=== PATIENT | female | born 1990 | race Caucasian/White ===

== ENCOUNTER 2017-02-20 13:52 | Emergency (ER) | payer BC ==
--- NOTE | 2017-02-20 14:42 | EDM.PDOC ---
ED HPI GENERAL MEDICAL PROBLEM - General Chief Complaint: Chest Pain Stated Complaint: Chest pain Time Seen by Provider: 02/20/17 14:15 Source of Information: Reports: Patient, RN Notes Reviewed History Limitations: Reports: No Limitations - History of Present Illness INITIAL COMMENTS - FREE TEXT/NARRATIVE: 26 year old female presents to the ER with 3 day history of left sided chest pain. The pain is described as sharp and only lasts a few seconds. The pain does not worsen with inspiration. She denies radiation of the chest pain. She denies unilateral or bilateral calf pain, swelling, or erythema. No history of clotting disorder. She reports intermittent dizziness and near syncope for several months. She says she feels like her heart skips a beat. This only lasts a few seconds. She denies rapid heart rate or persistent palpitations. She has no history of heart problems. She has a history of asthma and feels the smoke in the air is causing her symptoms. She is not on any control and says she may be . She is new to the area and does not have a PCP. Left Chest Pain Score (Numeric/FACES): 7 - Related Data Allergies Allergy/AdvReac Type Severity Reaction Status Date / Time No Known Allergies Allergy Verified 02/20/17 14:01 Home Meds: Home Meds Albuterol [Proventil HFA] 2 puff INH QID PRN #1 inhaler 02/20/17 [Rx] Past Medical History Respiratory History: Reports: Asthma Other Respiratory History: hx of asthma as a child [employer] History: Reports: - Past Surgical History GI Surgical History: Reports: Cholecystectomy Social & Family History - Tobacco Use Smoking Status *Q: Never Smoker - Caffeine Use Caffeine Use: Reports: Coffee - Recreational Drug Use Recreational Drug Use: No ED ROS GENERAL - Review of Systems Review Of Systems: See Below Constitutional: Reports: No Symptoms. Denies: Fever, Chills Respiratory: Reports: No Symptoms. Denies: Shortness of Breath, Wheezing, Cough , Sputum Cardiovascular: Reports: Chest Pain, Lightheadedness, Palpitations. Denies: Dyspnea on Exertion, Edema, Syncope GI/Abdominal: Reports: No Symptoms. Denies: Abdominal Pain, Nausea, Vomiting Neurological: Reports: Dizziness. Denies: Headache, Numbness, Tingling, Difficulty Walking, Weakness ED EXAM, GENERAL - Physical Exam Exam: See Below Exam Limited By: No Limitations General Appearance: Alert, WD/WN, No Apparent Distress Respiratory/Chest: No Respiratory Distress, Lungs Clear, Normal Breath Sounds, No Accessory Muscle Use, Other (mild tenderness over left anterior chest wall ) Cardiovascular: Normal Peripheral Pulses, Regular Rate, Rhythm, No Edema, No Murmur GI/Abdominal: Normal Bowel Sounds, Soft, Non-Tender Extremities: Normal Inspection, Normal Range of Motion, No Pedal Edema. No: Lizbeth's Sign, Leg Pain, Increased Warmth, Redness Neurological: Alert, Oriented, Normal Cognition Skin Exam: Warm, Dry, Intact Course - Vital Signs Last Recorded V/S: Last Vital Signs Temp 97.4 F 02/20/17 14:01 Pulse 70 02/20/17 14:01 Resp 16 02/20/17 14:01 BP 127/80 02/20/17 14:01 Pulse Ox 100 02/20/17 14:01 - Orders/Labs/Meds Orders: Active Orders 24 hr Category Date Time Status EKG 12 Lead [EKG Documentation Completion] [RC] STAT Care 02/20/17 14:14 Active CXR [Chest 1V Frontal] [CR] Stat Exams 02/20/17 14:41 Ordered Labs: Laboratory Tests 02/20/17 02/20/17 02/20/17 Range/Units 14:55 14:55 14:55 WBC 7.37 (3.98-10.04) K/mm3 RBC 4.56 (3.98-5.22) M/mm3 Hgb 13.3 (11.2-15.7) gm/L Hct 40.2 (34.1-44.9) % MCV 88.2 (79.4-94.8) fl MCH 29.2 (25.6-32.2) pg MCHC 33.1 (32.2-35.5) g/dl RDW Std Deviation 43.0 (36.4-46.3) fL Plt Count 257 (182-369) K/mm3 MPV 11.1 (9.4-12.3) fl Neut % (Auto) 55.9 (34.0-71.1) % Lymph % (Auto) 31.9 (19.3-51.7) % [place] % (Auto) 8.3 (4.7-12.5) % Eos % (Auto) 3.4 (0.7-5.8) Baso % (Auto) 0.4 (0.1-1.2) % Neut # (Auto) 4.12 (1.56-6.13) K/mm3 Lymph # (Auto) 2.35 (1.18-3.74) K/mm3 [place] # (Auto) 0.61 H (0.24-0.36) K/mm3 Eos # (Auto) 0.25 (0.04-0.36) K/mm3 Baso # (Auto) 0.03 (0.01-0.08) K/mm3 Sodium 140 (136-145) mEq/L Potassium 4.0 (3.5-5.1) mEq/L Chloride 107 (98-107) mEq/L Carbon Dioxide 27 (21-32) mEq/L Anion Gap 10.0 (5-15) BUN 8 (7-18) mg/dL Creatinine 0.8 (0.55-1.02) mg/dL Est Cr Clr Drug Dosing 90.41 mL/min Estimated GFR (MDRD) > 60 (>60) mL/min BUN/Creatinine Ratio 10.0 L (14-18) Glucose 89 (74-106) mg/dL Calcium 9.3 (8.5-10.1) mg/dL Total Bilirubin 0.3 (0.2-1.0) mg/dL AST 22 (15-37) U/L ALT 32 (14-59) U/L Alkaline Phosphatase 50 (46-116) U/L Troponin I < 0.017 (0.00-0.056) ng/mL Total Protein 7.4 (6.4-8.2) g/dl Albumin 3.7 (3.4-5.0) g/dl Globulin 3.7 gm/dL Albumin/Globulin Ratio 1.0 (1-2) Urine HCG, Qual Negative (NEGATIVE) - Re-Assessments/Exams Free Text/Narrative Re-Assessment/Exam: CBC, CMP and troponin are WNL today. Hcg is negative. Chest x-ray is normal. No pulmonary infiltrates or effusions. Heart size is normal. EKG reveals NSR 77 bpm with no acute changes. EKG read by Dr. Torres. Patient was reassured. We discussed Holter monitor for further evaluation of her occasional palpitations. Will refer her to the clinic for follow-up and to establish care. Educated on return precautions. She will be given Rx for Albuterol inhaler to see if this offers any relief in symptoms as she has a history of asthma. Departure - Departure Time of Disposition: 16:17 Disposition: Home, Self-Care 01 Condition: Good Clinical Impression: History of asthma Chest pain Qualifiers: Chest pain type: intercostal pain Qualified Code(s): R07.82 - Intercostal pain Prescriptions: Albuterol [Proventil HFA] 2 puff INH QID PRN #1 inhaler PRN Reason: Cough Referrals: PCP,None [Primary Care Provider] - Forms: ED Department Discharge Additional Instructions: Call the clinic to establish with Fawn Espinoza PAC or Sunni Cadet PAC Follow-up next week for recheck Would consider Holter (cardiac) monitor if you continue to have symptoms Ibuprofen 600mg every 8 hours as needed for pain Stay well hydrated Return to ER with any new or worsening symptoms - My Orders Last 24 Hours: My Active Orders 02/20/17 14:14 EKG 12 Lead [EKG Documentation Completion] [RC] STAT 02/20/17 14:41 CXR [Chest 1V Frontal] [CR] Stat - Assessment/Plan Last 24 Hours: My Active Orders 02/20/17 14:14 EKG 12 Lead [EKG Documentation Completion] [RC] STAT 02/20/17 14:41 CXR [Chest 1V Frontal] [CR] Stat
[2017-02-20 16:33] VITALS: BP 109/79
--- NOTE | 2017-02-24 08:39 | CR ---
Chest: Frontal view of the chest was obtained. Comparison: No prior study. Heart size and mediastinum are normal. Lungs are clear. Bony structures are grossly intact. Impression: 1. Nothing acute is identified on frontal chest x-ray. Diagnostic code #1
== END 2017-02-20 16:30 | disposition home or self-care (01) ==
LOC: JD.ED 13:52
DX: R07.82 Intercostal pain (principal); J45.909 Unspecified asthma, uncomplicated; Z90.49 Acquired absence of other specified parts of digestive tract
CPT/HCPCS: 36415; 71010; 71010-26; 80053; 81025; 84484; 85025; 93005; 99284; 99285-25

== ENCOUNTER 2018-11-19 22:41 | Emergency (ER) | payer MEDICAID ==
[2018-11-19 22:48] VITALS: BP 120/76
--- NOTE | 2018-11-19 23:41 | EDM.PDOC ---
ED HPI GENERAL MEDICAL PROBLEM - General Chief Complaint: ENT Problem Stated Complaint: dental pain Time Seen by Provider: 11/19/18 23:18 Source of Information: Reports: Patient, RN Notes Reviewed History Limitations: Reports: No Limitations - History of Present Illness INITIAL COMMENTS - FREE TEXT/NARRATIVE: The patient states she is 27 weeks . Her LMP was 05/13/2018. Her SHANNAN is . The patient states that she developed lower left dentalgia around 20:00 tonight. She states that it developed on its own - she wasn't chewing anything. She states the pain was very severe, although it has significantly improved after she took Tylenol and Orajel around 20:30. She had left ear pain. No associated fever, chills, or facial swelling. No oral drainage. No prior problems with this tooth. The patient states that she saw a dentist in [place] 2 or 3 weeks ago, but it was to address another tooth. The patient does not have a PCP. Her Merchandising Assistant is Dr. Alma Mack. 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 ED EXAM, ENT - Physical Exam Exam: See Below Exam Limited By: No Limitations General Appearance: Alert, WD/WN, No Apparent Distress Eye Exam: Bilateral Eye: EOMI, Normal Inspection Ears: Normal External Exam, Normal Canal, Hearing Grossly Normal, Normal TMs Nose: Normal Inspection, Normal Mucousa, No Blood Mouth/Throat: Normal Inspection, Normal Gums, Normal Lips, Normal Oropharynx, Normal Teeth (Teeth #1, 16, 17, 31, 32 absent. Tooth #18 (the tooth of concern) is normal in appearance. No gingival swelling or pointing.) Head: Atraumatic, Normocephalic Neck: Normal Inspection, Supple, Non-Tender, Full Range of Motion. No: Lymphadenopathy (L), Lymphadenopathy (R) Course - Vital Signs Last Recorded V/S: Last Vital Signs Temp 36.2 C 11/19/18 22:46 Pulse 67 11/19/18 22:46 Resp 16 11/19/18 22:46 BP 120/76 11/19/18 22:46 Pulse Ox 99 11/19/18 22:46 - Re-Assessments/Exams Free Text/Narrative Re-Assessment/Exam: 11/19/18 23:38 None of the patient's wisdom teeth ever erupted, but all of her existing teeth look terrific. Tooth #18 is the tooth that was bothering her, although I see no abnormality to the tooth, and no gingival swelling. The patient tells me that since she has been here in the ED, her toothache has resolved. I am not sure what caused her earlier pain. We'll provide her with a list of local dentists, but other than Tylenol, I don't see the need for any medications. Departure - Departure Time of Disposition: 23:39 Disposition: Home, Self-Care 01 Condition: Good Clinical Impression: Dentalgia - Discharge Information *PRESCRIPTION DRUG MONITORING PROGRAM REVIEWED*: Not Applicable *COPY OF PRESCRIPTION DRUG MONITORING REPORT IN PATIENT JAYNE: Not Applicable Instructions: Preventive Dental Care, Adult Referrals: Alma Mack MD [Primary Care Provider] - Forms: ED Department Discharge Additional Instructions: You were seen in the emergency room for a lower left toothache. On examination, all of your teeth, including tooth #18 - the tooth that was hurting - appear normal. There is no sign of infection, cavity, or broken tooth. The cause of your toothache is unknown. Take [id number] Tylenol as needed for discomfort. Follow-up with a dentist at the next available appointment. If any other problems, please do not hesitate to return to the ER.
== END 2018-11-19 23:50 | disposition home or self-care (01) ==
LOC: EDSTATUS 22:41 → JD.ED 22:41
DX: O99.612 Diseases of the digestive system complicating pregnancy, second trimester (principal); K08.89 Other specified disorders of teeth and supporting structures; Z79.899 Other long term (current) drug therapy; Z3A.27 27 weeks gestation of pregnancy
CPT/HCPCS: 99282

== ENCOUNTER 2019-02-06 03:59 | Inpatient (IN) | payer MEDICAID ==
[2019-02-06] MEDS ORDERED: Nalbuphine 10 MG/1 ML Vial IVPUSH PRN (04:17)
[2019-02-06] MEDS ORDERED: Sodium Chloride 0.9% 10 ML Syringe FLUSH PRN (04:17)
[2019-02-06] MEDS ORDERED: Oxytocin/Lactated Ringers 10 UNIT/1,000 ML BAG IV SCH ×2 (04:30→08:30)
[2019-02-06] MEDS: Lactated Ringers 1,000 ML IV SCH ×3 (04:55→07:06)
[2019-02-06] MEDS ORDERED: ePHEDrine 50 MG/ML SDV IVPUSH PRN (05:42)
[2019-02-06] MEDS ORDERED: diphenhydrAMINE 50 MG/ML SDV IVPUSH PRN (05:42)
[2019-02-06] MEDS ORDERED: fentaNYL 100 MCG/2 ML SDV EPIDUR PRN (05:42)
[2019-02-06] MEDS ORDERED: Bupivacaine/fentaNYL/NS 100 ML Bag EPIDUR SCH (05:45)
--- NOTE | 2019-02-06 06:18 | PCM.PREANE ---
Preanesthetic Assessment - Anesthesia/Transfusion/Family Hx Anesthesia History: Prior Anesthesia Without Reaction Family History of Anesthesia Reaction: No Transfusion History: No Prior Transfusion(s) - Review of Systems General: Fatigue Pulmonary: No Symptoms Cardiovascular: No Symptoms Gastrointestinal: Abdominal Pain (labor) Neurological: No Symptoms Other: Reports: None - Physical Assessment Vital Signs: Last Vital Signs Temp 36.4 C 02/06/19 04:08 Pulse 75 02/06/19 04:08 Resp 17 02/06/19 04:08 BP 135/90 02/06/19 04:08 Pulse Ox Height: 1.63 m Weight: 93.44 kg ASA Class: 2 Mental Status: Alert & Oriented x3 Airway Class: Mallampati = 1 Dentition: Reports: Normal Dentition ROM/Head Extension: Full Lungs: Clear to Auscultation, Normal Respiratory Effort Cardiovascular: Regular Rate, Regular Rhythm - Lab Values: Laboratory Last Values WBC 8.06 K/mm3 (3.98-10.04) 02/06/19 05:00 RBC 4.15 M/mm3 (3.98-5.22) 02/06/19 05:00 Hgb 12.3 gm/L (11.2-15.7) 02/06/19 05:00 Hct 36.8 % (34.1-44.9) 02/06/19 05:00 MCV 88.7 fl (79.4-94.8) 02/06/19 05:00 MCH 29.6 pg (25.6-32.2) 02/06/19 05:00 MCHC 33.4 g/dl (32.2-35.5) 02/06/19 05:00 RDW Std Deviation 43.2 fL (36.4-46.3) 02/06/19 05:00 Plt Count 198 K/mm3 (182-369) 02/06/19 05:00 MPV 12.1 fl (9.4-12.3) 02/06/19 05:00 Neut % (Auto) 59.8 % (34.0-71.1) 02/06/19 05:00 Lymph % (Auto) 27.2 % (19.3-51.7) 02/06/19 05:00 [place] % (Auto) 10.0 % (4.7-12.5) 02/06/19 05:00 Eos % (Auto) 2.5 (0.7-5.8) 02/06/19 05:00 Baso % (Auto) 0.4 % (0.1-1.2) 02/06/19 05:00 Neut # (Auto) 4.82 K/mm3 (1.56-6.13) 02/06/19 05:00 Lymph # (Auto) 2.19 K/mm3 (1.18-3.74) 02/06/19 05:00 [place] # (Auto) 0.81 K/mm3 (0.24-0.36) H 02/06/19 05:00 Eos # (Auto) 0.20 K/mm3 (0.04-0.36) 02/06/19 05:00 Baso # (Auto) 0.03 K/mm3 (0.01-0.08) 02/06/19 05:00 - Allergies Allergies/Adverse Reactions: Allergies Allergy/AdvReac Type Severity Reaction Status Date / Time No Known Allergies Allergy Verified 02/06/19 04:08 - Anesthesia Plan Pre-Op Medication Ordered: None - Acknowledgements Anesthesia Type Planned: Epidural Pt an Appropriate Candidate for the Planned Anesthesia: Yes Alternatives and Risks of Anesthesia Discussed w Pt/Guardian: Yes Pt/Guardian Understands and Agrees with Anesthesia Plan: Yes PreAnesthesia Questionnaire HEENT History: Reports: None Cardiovascular History: Reports: None Respiratory History: Reports: Asthma Other Respiratory History: hx of asthma as a child Gastrointestinal History: Reports: GERD Genitourinary History: Reports: STD, Other (See Below) Other Genitourinary History: history of chlamydia 2008, treated. 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 Musculoskeletal History: Reports: None Neurological History: Reports: None Psychiatric History: Reports: None Endocrine/Metabolic History: Reports: None Hematologic History: Reports: None Immunologic History: Reports: None Oncologic (Cancer) History: Reports: None Dermatologic History: Reports: None - Infectious Disease History Infectious Disease History: Reports: None - Past Surgical History GI Surgical History: Reports: Cholecystectomy - SUBSTANCE USE Smoking Status *Q: Never Smoker Recreational Drug Use History: No - HOME MEDS Home Medications: Home Meds PNV95/Ferrous Fumarate/FA [ Tablet] 1 tab PO DAILY 11/19/18 [History] - CURRENT (IN HOUSE) MEDS Current Meds: Current Medications Diphenhydramine HCl (Benadryl) 25 mg IVPUSH Q6H PRN PRN Reason: Itching Ephedrine Sulfate (Ephedrine Sulfate) 5 mg IVPUSH ASDIRECTED PRN PRN Reason: HYPOTENTSION Fentanyl (Sublimaze) 100 mcg EPIDUR Q3H PRN PRN Reason: Pain Last Admin: 02/06/19 06:11 Dose: 100 mcg Fentanyl/Bupivacaine HCl (Fentanyl/Bupivacaine/Ns 2 Mcg-0.125% 100 Ml) 100 ml EPIDUR ASDIRECTED TASHI Last Admin: 02/06/19 06:12 Dose: 100 ml Lactated Ringer's (Ringers, Lactated) 1,000 mls @ 100 mls/hr IV ASDIRECTED TASHI Last Admin: 02/06/19 05:54 Dose: 100 mls/hr Oxytocin/Lactated Ringer's (Pitocin In Lr 10 Units/1,000 Ml) 10 unit in 1,000 mls @ 500 mls/hr IV .CONTINUOUS TASHI Nalbuphine HCl (Nubain) 10 mg IVPUSH Q2H PRN PRN Reason: Pain Sodium Chloride (Saline Flush) 10 ml FLUSH ASDIRECTED PRN PRN Reason: Keep Vein Open
[2019-02-06] MEDS ORDERED: Ondansetron 4 MG/2 ML SDV IVPUSH PRN (06:54)
--- NOTE | 2019-02-06 08:13 | PCM.LDHP ---
L&D History of Present Illness - General Date of Service: 02/06/19 Admit Problem/Dx: Patient Status Order with Admit Dx/Problem 02/06/19 04:17 Patient Status [ADT] Routine Admission Diagnosis/Problem Admission Diagnosis/Problem Source of Information: Patient History Limitations: Reports: No Limitations - History of Present Illness Pain Score: 10 Present Illness Comments:: Patient is a 28 year old healthy female who is a 38w3d today with SHANNAN of 02/17/19 who presented today with spontaneous rupture of membranes at approximately 3:30 this morning. LMP was 05/13/18 with previous menstruation regular prior to conception. No contraception use at time of conception. Current : Initial lab work demonstrated a hemoglobin of 12.8 on with subsequent hemoglobin of 11.7 on 12/02/18, and initial platelet count of 244,000 on 07/29/18 and subsequent platelet count 193,000. Patient is blood type A+ with negative antibody screen on 07/29/18. GBS negative as determined by swab done 01/04 in labor and delivery. Rubella immune as of 07/29/18, Syphilis IgG non reactive on both 07/29/18 and 11/03/18, Hepatitis B surface antigen non reactive on 07/29/18. Patient HIV, Gonorrhea and chlamydia negative as of 07/29/18. Patient had normal pap smear 07/29/18. Oral glucose tolerance test done 11/03/18 was 119. She did receive treatment for a UTI on 07/02/18 for which she took Keflex. Ultrasound 09/29/18 demonstrated posterior placenta approximately 1 cm from the internal cervical os. Follow up ultrasound on demonstrated posterior placenta with the inferior placental edge clear of the internal cervical os by approximately 4.3 cm. Total weight gain during was 28 pounds, from 175 lbs to 203 lbs. She plans on breast feeding following and is intending to receive an Epidural. Previous : at 39w2d gestational age to term female named Shantelle Koch. - Related Data Allergies/Adverse Reactions: Allergies Allergy/AdvReac Type Severity Reaction Status Date / Time No Known Allergies Allergy Verified 02/06/19 04:08 Home Medications: Home Meds PNV95/Ferrous Fumarate/FA [ Tablet] 1 tab PO DAILY 11/19/18 [History] Past Medical History HEENT History: Reports: None Cardiovascular History: Reports: None Respiratory History: Reports: Asthma Other Respiratory History: hx of asthma as a child Gastrointestinal History: Reports: GERD Other Gastrointestinal History: Patient had cholecystectomy during second trimester of last Genitourinary History: Reports: STD, Other (See Below) Other Genitourinary History: history of chlamydia 2008, treated. UTI in june 2018 that was treated with Keflex. 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 Musculoskeletal History: Reports: None Neurological History: Reports: None Psychiatric History: Reports: None Endocrine/Metabolic History: Reports: None Hematologic History: Reports: None Immunologic History: Reports: None Oncologic (Cancer) History: Reports: None Dermatologic History: Reports: None - Infectious Disease History Infectious Disease History: Reports: None - Past Surgical History GI Surgical History: Reports: Cholecystectomy Social & Family History - Family History Neurological: Reports: Migraines Psychiatric: Reports: ADHD, Depression Endocrine/Metabolic: Reports: Diabetes, type II Other Endocrine/Metabolic Family History: Thyroid dysfunction Hematologic: Reports: Anemia Oncologic: Reports: Breast (Maternal grandmother in her 30s), Other (See Below) (Mother has history of abnormal pap smear) - Tobacco Use Smoking Status *Q: Never Smoker Tobacco Use Within Last Twelve Months: No - Tobacco Core Measures Tobacco Use/Smoking Within Last 30 Days: No - Caffeine Use Caffeine Use: Reports: Coffee - Alcohol Use Alcohol Use History: Yes Date/Time of Last Drink Comment: Last drink May 28, 2018 - Recreational Drug Use Recreational Drug Use: No - Living Situation & Occupation Living situation: Reports: Single, with Significant Other (Fiance), with Family (2 kids) Occupation: Unemployed H&P Review of Systems - Review of Systems: Review Of Systems: See Below General: Reports: No Symptoms. Denies: Fever, Fatigue, Decreased Appetite HEENT: Reports: No Symptoms. Denies: Dysphasia, Ear Pain, Eye Pain, Rhinitis, Post Nasal Drip, Sore Throat, Visual Changes Pulmonary: Reports: No Symptoms. Denies: Shortness of Breath, Cough Cardiovascular: Reports: No Symptoms. Denies: Chest Pain, Palpitations Gastrointestinal: Reports: No Symptoms, Diarrhea (Off and on during the last week, attributes to ). Denies: Abdominal Pain, Black Stool, Bloody Stool, Constipation, Vomiting Genitourinary: Reports: No Symptoms. Denies: Dysuria, Frequency, Burning Musculoskeletal: Reports: No Symptoms. Denies: Joint Pain, Muscle Pain Skin: Reports: No Symptoms. Denies: Rash Psychiatric: Reports: No Symptoms. Denies: Depression, Anxiety, Suicidal Ideation Neurological: Reports: No Symptoms, Headache (Intermittent for the past three days). Denies: Dizziness, Numbness, Tingling Hematologic/Lymphatic: Reports: No Symptoms. Denies: Easy Bleeding, Easy Bruising Immunologic: Reports: No Symptoms L&D Exam - Exam Exam: See Below - Vital Signs Vital Signs: Last Vital Signs Temp 97.6 F 02/06/19 04:08 Pulse 75 02/06/19 04:08 Resp 17 02/06/19 04:08 BP 135/90 02/06/19 04:08 Pulse Ox Weight: 206 lb - OB Specific Movement: Active Heart Tones: Present Presentation: Vertex - Exam General: Alert, Oriented HEENT: Conjunctiva Clear, EOMI, Mucosa Moist & Pinch, Nares Patent, Pupils Equal Neck: Supple, Trachea Midline Lungs: Clear to Auscultation, Normal Respiratory Effort Cardiovascular: Regular Rate, Regular Rhythm GI/Abdominal Exam: Normal Bowel Sounds, Soft Rectal Exam: Deferred Extremities: Normal Inspection, No Pedal Edema Skin: Warm, Dry, Intact Neurological: Cranial Nerves Intact Psychiatric: Alert, Normal Affect, Normal Mood - Patient Data Lab Results Last 24 hrs: Laboratory Results - last 24 hr 02/06/19 Range/Units 05:00 WBC 8.06 (3.98-10.04) K/mm3 RBC 4.15 (3.98-5.22) M/mm3 Hgb 12.3 (11.2-15.7) gm/L Hct 36.8 (34.1-44.9) % MCV 88.7 (79.4-94.8) fl MCH 29.6 (25.6-32.2) pg MCHC 33.4 (32.2-35.5) g/dl RDW Std Deviation 43.2 (36.4-46.3) fL Plt Count 198 (182-369) K/mm3 MPV 12.1 (9.4-12.3) fl Neut % (Auto) 59.8 (34.0-71.1) % Lymph % (Auto) 27.2 (19.3-51.7) % [place] % (Auto) 10.0 (4.7-12.5) % Eos % (Auto) 2.5 (0.7-5.8) Baso % (Auto) 0.4 (0.1-1.2) % Neut # (Auto) 4.82 (1.56-6.13) K/mm3 Lymph # (Auto) 2.19 (1.18-3.74) K/mm3 [place] # (Auto) 0.81 H (0.24-0.36) K/mm3 Eos # (Auto) 0.20 (0.04-0.36) K/mm3 Baso # (Auto) 0.03 (0.01-0.08) K/mm3 Result Diagrams: 02/06/19 05:00 - Problem List (1) SNOMED Code(s): 10945514 ICD Code: Z34.90 - ENCNTR FOR SUPRVSN OF NORMAL , UNSP, UNSP TRIMESTER Status: Acute Current Visit: Yes Qualifiers: Weeks of gestation: 38 weeks Qualified Code(s): Z3A.38 - 38 weeks gestation of Problem List Initiated/Reviewed/Updated: Yes Orders Last 24hrs: Active Orders 24 hr Category Date Time Status Patient Status [ADT] Routine ADT 02/06/19 04:17 Active Activity as Tolerated [RC] PFP Care 02/06/19 04:17 Active Communication Order [RC] ASDIRECTED Care 02/06/19 04:17 Active Communication Order [RC] ASDIRECTED Care 02/06/19 05:42 Active Cooling Warming Measures [RC] ASDIRECTED Care 02/06/19 05:42 Active Heart Tones [RC] ASDIRECTED Care 02/06/19 04:17 Active Non Stress Test [RC] PER UNIT ROUTINE Care 02/06/19 04:17 Active Notify Provider [RC] ASDIRECTED Care 02/06/19 05:42 Active Notify Provider [RC] PFP Care 02/06/19 04:17 Active Notify Provider [RC] PRN Care 02/06/19 04:17 Active Oxygen Therapy [RC] ASDIRECTED Care 02/06/19 05:41 Active Peripheral IV Care [RC] . DIRECTED Care 02/06/19 04:17 Active Pulse Oximetry [RC] ASDIRECTED Care 02/06/19 05:42 Active Vital Signs [RC] PER UNIT ROUTINE Care 02/06/19 04:17 Active Regular Diet [DIET] Diet 02/06/19 Breakfast Active RAPID PLASMA REAGIN,RPR [CHEM] Routine Lab 02/06/19 05:00 Received Bupivacaine/fentaNYL/NS [fentaNYL/Bupivacaine/NS 2 MCG- Med 02/06/19 05:45 Active 0.125% 100 ML] 100 ml EPIDUR ASDIRECTED Lactated Ringers [Ringers, Lactated] 1,000 ml Med 02/06/19 04:30 Active IV ASDIRECTED Nalbuphine [Nubain] Med 02/06/19 04:17 Active 10 mg IVPUSH Q2H PRN Ondansetron [Zofran] Med 02/06/19 06:54 Active 4 mg IVPUSH Q8H PRN Oxytocin/Lactated Ringers [Pitocin in LR 10 Units/1,000 Med 02/06/19 04:30 Active ML] 10 unit in 1,000 ml IV .CONTINUOUS Sodium Chloride 0.9% [Saline Flush] Med 02/06/19 04:17 Active 10 ml FLUSH ASDIRECTED PRN diphenhydrAMINE [Benadryl] Med 02/06/19 05:42 Active 25 mg IVPUSH Q6H PRN ePHEDrine [ePHEDrine sulfate] Med 02/06/19 05:42 Active 5 mg IVPUSH ASDIRECTED PRN fentaNYL [Sublimaze] Med 02/06/19 05:42 Active 100 mcg EPIDUR Q3H PRN Electronic Heart Tones Ext w TOCO [WOMSER] Oth 02/06/19 04:17 Ordered Routine Electronic Heart Tones Internal [WOMSER] Per Unit Oth 02/06/19 04:17 Ordered Routine Peripheral IV Insertion Adult [OM.PC] Routine Oth 02/06/19 04:17 Ordered Resuscitation Status Routine Resus Stat 02/06/19 04:17 Ordered Medication Orders Diphenhydramine HCl (Benadryl) 25 mg IVPUSH Q6H PRN PRN Reason: Itching Ephedrine Sulfate (Ephedrine Sulfate) 5 mg IVPUSH ASDIRECTED PRN PRN Reason: HYPOTENTSION Fentanyl (Sublimaze) 100 mcg EPIDUR Q3H PRN PRN Reason: Pain Last Admin: 02/06/19 06:11 Dose: 100 mcg Fentanyl/Bupivacaine HCl (Fentanyl/Bupivacaine/Ns 2 Mcg-0.125% 100 Ml) 100 ml EPIDUR ASDIRECTED TASHI Last Admin: 02/06/19 06:12 Dose: 100 ml Lactated Ringer's (Ringers, Lactated) 1,000 mls @ 100 mls/hr IV ASDIRECTED TASHI Last Admin: 02/06/19 07:06 Dose: 100 mls/hr Infusion: 02/06/19 07:06 Dose: 100 mls/hr Admin: 02/06/19 05:54 Dose: 100 mls/hr Infusion: 02/06/19 05:54 Dose: 100 mls/hr Admin: 02/06/19 04:55 Dose: 100 mls/hr Oxytocin/Lactated Ringer's (Pitocin In Lr 10 Units/1,000 Ml) 10 unit in 1,000 mls @ 500 mls/hr IV .CONTINUOUS TASHI Nalbuphine HCl (Nubain) 10 mg IVPUSH Q2H PRN PRN Reason: Pain Ondansetron HCl (Zofran) 4 mg IVPUSH Q8H PRN PRN Reason: Nausea Last Admin: 02/06/19 07:06 Dose: 4 mg Sodium Chloride (Saline Flush) 10 ml FLUSH ASDIRECTED PRN PRN Reason: Keep Vein Open Assessment/Plan Comment:: Patient will have an epidural placed for pain management If necessary, we will consider oxytocin to augment labor.
--- NOTE | 2019-02-06 15:10 | PCM.SN ---
- Free Text/Narrative Note: Stage I - Patient presented in active labor with SROM. Progressed to complete with pitocin augmentation, epidural anesthesia and overall reassuring FHT. Stage II - of viable male, weight 3250 8/9 apgars at 1313. Head delivered in controlled manner over intact perineum, body and shoulders without difficulty and placed on maternal abdomen. Cord clamped and cut. Stage III - of intact placenta. 3vc. EBL 300. Small 1st degree repaired with 3-0 vicryl.
[2019-02-06] MEDS ORDERED: Benzocaine/Menthol 20%-0.5% Spray 56 GM Canister TOP PRN (15:16)
[2019-02-06] MEDS ORDERED: Witch Hazel Medicated Pads 40/Jar TOP PRN (15:16)
[2019-02-06] MEDS: Ibuprofen 600 MG Tab PO PRN (20:10)
[2019-02-07] MEDS ORDERED: Bupivacaine 0.25% 10 ML SDV ONE
[2019-02-07] MEDS: Ibuprofen 600 MG Tab PO PRN ×2 (03:22→09:46)
--- NOTE | 2019-02-07 06:06 | PCM48HPAN ---
Post Anesthesia Note - EVALUATION WITHIN 48HRS OF ANESTHETIC Vital Signs in Normal Range: Yes Patient Participated in Evaluation: Yes Respiratory Function Stable: Yes Airway Patent: Yes Cardiovascular Function Stable: Yes Hydration Status Stable: Yes Pain Control Satisfactory: Yes Nausea and Vomiting Control Satisfactory: Yes Mental Status Recovered: Yes Vital Signs: Last Vital Signs Temp 36.7 C 02/07/19 03:20 Pulse 69 02/07/19 03:20 Resp 16 02/07/19 03:20 BP 112/71 02/07/19 03:20 Pulse Ox 98 02/07/19 03:20 - COMMENTS/OBSERVATIONS Free Text/Narrative:: no anesthesia complications noted
--- NOTE | 2019-02-07 07:09 | PCM.DCSUM1 ---
Discharge Summary - Hospital Course HPI Initial Comments: Doing well. Slept ok over night. No complaints Diagnosis: Stroke: No - Discharge Data Discharge Date: 02/07/19 Discharge Disposition: Home, Self-Care 01 Condition: Good - Patient Summary/Data Hospital Course: Unremarkable labor, delivery and course. - Patient Instructions Diet: Usual Diet as Tolerated Activity: No Strenuous Activities Driving: May Drive Today Showering/Bathing: May Shower Wound/Incision Care: Keep Operative Site/Wound Site Clean and Dry, Change Dressing Daily, Do NOT Change Dressing Notify Provider of: Fever, Increased Pain, Swelling and Redness, Drainage, Nausea and/or Vomiting - Discharge Plan *PRESCRIPTION DRUG MONITORING PROGRAM REVIEWED*: No *COPY OF PRESCRIPTION DRUG MONITORING REPORT IN PATIENT JAYNE: No Home Medications: Home Meds PNV95/Ferrous Fumarate/FA [ Tablet] 1 tab PO DAILY 11/19/18 [History] Referrals: Alma Mack MD [Primary Care Provider] - - Discharge Summary/Plan Comment DC Time >30 min.: No - General Info Date of Service: 02/07/19 Functional Status: Reports: Pain Controlled - Review of Systems General: Reports: No Symptoms HEENT: Reports: No Symptoms Pulmonary: Reports: No Symptoms Cardiovascular: Reports: No Symptoms Gastrointestinal: Reports: No Symptoms Genitourinary: Reports: No Symptoms Musculoskeletal: Reports: No Symptoms Skin: Reports: No Symptoms Neurological: Reports: No Symptoms Psychiatric: Reports: No Symptoms - Patient Data Vitals - Most Recent: Last Vital Signs Temp 36.7 C 02/07/19 03:20 Pulse 69 02/07/19 03:20 Resp 16 02/07/19 03:20 BP 112/71 02/07/19 03:20 Pulse Ox 98 02/07/19 03:20 Weight - Most Recent: 93.44 kg Lab Results - Last 24 hrs: Laboratory Results - last 24 hr 02/06/19 Range/Units 05:00 RPR Non-reactive (NONREACTIVE) Med Orders - Current: Current Medications Benzocaine/Menthol (Dermoplast Pain Relief [place]) 0 gm TOP ASDIRECTED PRN PRN Reason: Perineal Comfort Measure Last Admin: 02/06/19 16:01 Dose: 1 can Ibuprofen (Motrin) 600 mg PO Q6H PRN PRN Reason: Mild pain or fever Last Admin: 02/07/19 03:22 Dose: 600 mg Witch Lulu (Tucks) 1 pad TOP ASDIRECTED PRN PRN Reason: Pain Last Admin: 02/06/19 16:01 Dose: 1 carton Discontinued Medications Diphenhydramine HCl (Benadryl) 25 mg IVPUSH Q6H PRN PRN Reason: Itching Ephedrine Sulfate (Ephedrine Sulfate) 5 mg IVPUSH ASDIRECTED PRN PRN Reason: HYPOTENTSION Fentanyl (Sublimaze) 100 mcg EPIDUR Q3H PRN PRN Reason: Pain Last Admin: 02/06/19 06:11 Dose: 100 mcg Fentanyl/Bupivacaine HCl (Fentanyl/Bupivacaine/Ns 2 Mcg-0.125% 100 Ml) 100 ml EPIDUR ASDIRECTED TASHI Last Admin: 02/06/19 06:12 Dose: 100 ml Lactated Ringer's (Ringers, Lactated) 1,000 mls @ 100 mls/hr IV ASDIRECTED TASHI Last Admin: 02/06/19 07:06 Dose: 100 mls/hr Oxytocin/Lactated Ringer's (Pitocin In Lr 10 Units/1,000 Ml) 10 unit in 1,000 mls @ 500 mls/hr IV .CONTINUOUS TASHI Oxytocin/Lactated Ringer's (Pitocin In Lr 10 Units/1,000 Ml) 10 unit in 1,000 mls @ 12 mls/hr IV TITRATE TASHI; Protocol Last Titration: 02/06/19 13:30 Dose: 200 munits/min, 1,200 mls/hr Nalbuphine HCl (Nubain) 10 mg IVPUSH Q2H PRN PRN Reason: Pain Ondansetron HCl (Zofran) 4 mg IVPUSH Q8H PRN PRN Reason: Nausea Last Admin: 02/06/19 07:06 Dose: 4 mg Sodium Chloride (Saline Flush) 10 ml FLUSH ASDIRECTED PRN PRN Reason: Keep Vein Open - Exam General: Reports: Alert, Oriented HEENT: Reports: Pupils Equal, Pupils Reactive, EOMI, Mucous Membr. Moist/[place] Neck: Reports: Supple Lungs: Reports: Clear to Auscultation, Normal Respiratory Effort Cardiovascular: Reports: Regular Rate, Regular Rhythm GI/Abdominal Exam: Normal Bowel Sounds, Soft, Non-Tender, No Organomegaly, No Distention, No Abnormal Bruit, No Mass, Pelvis Stable Rectal (Female) Exam: Normal Exam Back Exam: Reports: Normal Inspection, Full Range of Motion Extremities: Normal Inspection, Normal Range of Motion, Non-Tender, No Pedal Edema, Normal Capillary Refill Skin: Reports: Warm, Dry, Intact Wound/Incisions: Reports: Healing Well Neurological: Reports: No New Focal Deficit Psy/Mental Status: Reports: Alert, Normal Affect, Normal Mood
[2019-02-07 10:23] VITALS: BP 112/61
== END 2019-02-07 16:44 | disposition home or self-care (01) | DRG 807 ==
LOC: JD.OBCHECK 03:59 → JD.OB 03:59 → JD.OBCHECK 04:16 → JD.OB 04:17 → OBSVTOIN 13:13
PROVIDERS: ADMIT Obstetrics & Gynecology; ATTEND Obstetrics & Gynecology
PROC: 10E0XZZ Delivery of Products of Conception, External Approach (ICD-10-PCS; principal; 2019-02-06)
PROC: 0HQ9XZZ Repair Perineum Skin, External Approach (ICD-10-PCS; 2019-02-06)
DX: O70.0 First degree perineal laceration during delivery (principal); Z37.0 Single live birth; Z3A.38 38 weeks gestation of pregnancy
CPT/HCPCS: 36415; 51702; 59025; 59409; 85025; 86592; A9270-GY; J2405; J2590; J3010; J3490; J7120